=== PATIENT | male | born 1995 | race Caucasian/White ===

== ENCOUNTER 2024-11-03 13:10 | Emergency (ER) | payer SELFPAY ==
[2024-11-03 13:11] VITALS: BP 150/100
--- NOTE | 2024-11-03 13:42 | ED.GENMED ---
History of Present Illness
General
Chief Complaint: Musculo-Skeletal Complaint
Time Seen by Provider: 11/03/24 13:42
History of Present Illness
History of Present Illness:
TIME OF INITIAL ENCOUNTER: 1:45 PM
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 He rolled his right ankle which led the pain to the lateral aspect of the right ankle. At that same moment, he grabbed the banister with his left hand and
developed severe pain at the base of the left thumb which dramatically worsens with attempted extension at the left thumb. He denies any other injury including head injury.
EXAM:
GENERAL: Well appearing in no distress
CERVICAL SPINE: No midline c-spine tenderness with excellent AROM
HEAD: No evidence of craniofacial trauma
EXTREMITIES: Slightly decreased active range of motion at the right ankle, there is no significant soft tissue swelling at the right ankle, mild tenderness in the anterior talofibular ligament region, there is markedly creased active range of motion
into extension at the MCP joint of the left thumb, there is no significant soft tissue swelling
NEURO: Excellent strength all extremities, appropriate mental status, normal speech/language
NUMBER AND COMPLEXITY OF PROBLEMS ADDRESSED AT THE ENCOUNTER
� Chronic conditions affecting care: No significant past medical history
� Acute Exacerbation and/or Progression of Chronic Illness:
� Differential Diagnosis includes: Ankle sprain, ankle fracture unlikely, UCL injury of the thumb, thumb sprain, low suspicion for fracture
AMOUNT AND/OR COMPLEXITY OF DATA TO BE REVIEWED AND ANALYZED
� I performed an independent evaluation of and my interpretation is:
EKG:
CT:
X-rays: X-ray of right ankle shows no fracture, x-ray of left hand shows ossicle at the left thumb but no definite fracture
Laboratory Studies:
Other:
� Review of other/old records: No old records available for review in [facility]
� Clinical information was obtained by an independent historian: None needed
� Prescriptions/Medications Considered but not given:
� Further testing considered but not performed:
RISK OF COMPLICATIONS AND/OR MORBIDITY OR MORTALITY OF PATIENT MANAGEMENT
� Social determinants of health affecting care: Works as a police sergeant precinct, lives in [place]
� Discussion with other providers:
� Escalation of care including admission/observation vs risk of discharge considered: Affected areas are splinted. He is to follow-up with orthopedics. Thumb spica used.
ANY OTHER UPDATES:
Phy Exam
Physical Exam
Physical Exam:
See HPI
Course
Orders/Labs/Results
Orders:
Orders
11/03/24 13:15
CR Ankle - Right Min 3 Views * Urgent
Comment:
Reason For Exam: injury, pain
CR Hand - Left Min 3 Views Urgent
Comment:
Reason For Exam: injury, pain, decreased ROM
11/03/24 13:52
Air Splint Right-Treatment ONCE
Thumb Spica Left-Treatment ONCE
Vital Signs
Initial and Last Documented VS:
Initial Vital Signs
Temp Pulse Resp BP Pulse Ox
36.7 C 118 18 150/100 99
11/03/24 13:11 11/03/24 13:11 11/03/24 13:11 11/03/24 13:11 11/03/24 13:11
Last Documented Vital Signs
Temp Pulse Resp BP Pulse Ox
36.7 C 85 20 139/69 98
11/03/24 13:11 11/03/24 15:04 11/03/24 15:04 11/03/24 15:04 11/03/24 15:04
*Critical Care Note
Total Time (30-74mins, 75-104mins- exclusive of procedures): Not Applicable
ED Attending Note
-
Portions of this chart may have been created with voice recognition software.� Occasional wrong word or��sound alike� substitutions may have occurred due to the inherent limitations of voice recognition software.
Discharge Plan
Departure
Patient Disposition: Home (Routine Discharge)
Date of Disposition: 11/03/24
Time of Disposition: 13:56
Patient with high blood pressure during this ER visit?: Yes
Discharge Problem:
Sprain of metacarpophalangeal (MCP) joint of left thumb
Instructions: Sprain (DC), Ankle sprain - ED discharge instructions
Referrals:
Nick Kiser MD [Active] - Follow up in 2-3 days
Activity Restrictions/Additional Instructions:
The x-ray of the right ankle shows no sign of fracture. We have given you an air stirrup splint to wear for comfort. You can take this on and off. The x-ray of the left hand shows no definite fracture however you have markedly decreased active
range of motion at the MCP joint of the left thumb. I recommend that you follow-up with orthopedics such as Dr. Kiser.
Interventions
Interventions:
*Risk Screen - Suicide Last Done: 11/03/24 13:11
*General Assessment Last Done: 11/03/24 13:11
*Neglect/Abuse Screening Last Done: 11/03/24 13:14
*ED COVID-19 Vaccine History Last Done: 11/03/24 13:11
*Nursing Disposition Last Done: 11/03/24 15:04
ED-Musculoskeletal Assessment Last Done: 11/03/24 14:00
Discharge Date and Time
Discharge Date/Time: 11/03/24 15:07
Print Language: [id number]
[2024-11-03 15:04] VITALS: BP 139/69
== END 2024-11-03 15:07 | disposition home or self-care (01) ==
LOC: EMR 13:10
PROVIDERS: EMERGENCY PHYSICIAN Emergency Medicine
DX: S63.642A Sprain of metacarpophalangeal joint of left thumb, initial encounter (principal); X58.XXXA Exposure to other specified factors, initial encounter
CPT/HCPCS: 99283; 29125; 73130; 73610